=== PATIENT | male | born 1990 | race Caucasian/White ===

== ENCOUNTER 2016-06-01 19:49 | Emergency (ER) | payer OTHER ==
[~2016-06-01] VITALS: Ht 177.8 cm; Wt 77.1 kg
[~2016-06-01 19:49] MED LIST: AMOXICILLIN875 MG PO; BIAXIN500 MG PO; CLARITIN10 MG PO; HYDROCODONE BIT1 T11 PO; IBU-6600 MG PO; IBU800 MG PO; KEFLEX500 MG PO; MEDROL DOSEPAK4 MG PO; MOTRIN800 MG PO; NAPROSYN500 MG PO; NKHM; PENICILLIN VK500 MG PO; Peridex 473 ML473 ML PO; SOMA250 MG PO; VENTOLIN H0.09 MG/AC INH; VOLTAREN50 M1 PO; ZITHROMAX Z PA250 MG PO; ZITHROMAX250 MG PO
[2016-06-01 19:52] VITALS: BP 140/80
[2016-06-01] MEDS ORDERED: NAPROSYN500 MG PO (19:58)
[2016-06-01] MEDS ORDERED: 'PARAFON FORTE500 M1 PO (19:58)
== END 2016-06-01 20:50 | disposition home or self-care (01) ==
LOC: ED 19:49
DX: M54.5 Low back pain (principal); M54.10 Radiculopathy, site unspecified; R03.0 Elevated blood-pressure reading, without diagnosis of hypertension; F17.200 Nicotine dependence, unspecified, uncomplicated

== ENCOUNTER 2017-01-05 17:47 | Emergency (ER) | payer OTHER ==
[~2017-01-05] VITALS: Wt 84.8 kg
[~2017-01-05 17:47] MED LIST changes: +'PARAFON FORTE500 M1 PO
[2017-01-05 17:52] VITALS: BP 135/80
[2017-01-05 18:23] LABS: BASO % 0.3 % (0.0-1.0); EOS % 0.3 % (1.0-4.0); HEMATOCRIT 46.8 % (42.0-52.0); HEMOGLOBIN 15.9 g/dl (14.0-18.0); LYMPH # 2.9 10*3/uL (1.3-4.4); LYMPH % 36.5 % (27.0-41.0); MEAN CELL VOLUME 88.5 fl (80.0-94.0); MEAN CORPUSCULAR HGB 30.1 pg (27.0-31.0); MEAN PLATELET VOLUME 11.3 fl (9.6-12.3); MONO # 0.5 10*3/uL (0.1-1.0); MONO % 6.9 % (3.0-9.0); NEUT # 4.4 10*3/uL (2.3-7.9); NEUT % 55.9 % (47.0-73.0); PLATELET COUNT AUTOMATED 166 10*3/uL (130-400); RED BLOOD COUNT 5.29 10*6/uL (4.50-5.90); RED CELL DISTRI WIDTH 12.6 % (0-14.5); WHITE BLOOD COUNT 7.8 10*3/uL (4.8-10.8)
[2017-01-05 18:38] LABS: ALBUMIN 4.1 gm/dl (3.1-4.5); ALKALINE PHOSPHATASE 86 U/L (45-117); BUN 9 mg/dl (7-24); CHLORIDE 104 mmol/L (98-107); CREATININE 1.04 mg/dL (0.70-1.30); LIPASE 111 U/L (73-393); POTASSIUM 3.9 mmol/L (3.5-5.1); SGOT/AST 16 IU/L (3-35); SGPT/ALT 20 U/L (12-78); SODIUM 139 mmol/L (136-145); TOTAL PROTEIN 7.4 gm/dL (6.4-8.2)
[2017-01-05 18:44] LABS: BILIRUBIN NEGATIVE (NEGATIVE); BLOOD NEGATIVE (NEGATIVE); CLARITY CLEAR (CLEAR); COLOR YELLOW (YELLOW); GLUCOSE NEGATIVE (NEGATIVE); KETONE NEGATIVE (NEGATIVE); LEUKO ESTERASE NEGATIVE (NEGATIVE); NITRITE NEGATIVE (NEGATIVE); UROBILINOGEN 0.2 E.U./dl (0.2-1.0)
[2017-01-05 18:54] LABS: BACTERIA TRACE; EPITHELIAL CELLS 0-2; WBC 0-2 wbc/hpf (0-5)
[2017-01-05] MEDS ORDERED: ZANTAC 150150 MG PO (19:50)
== END 2017-01-05 19:55 | disposition home or self-care (01) ==
LOC: ED 17:47
PROVIDERS: Physician Assistant
DX: R10.13 Epigastric pain (principal); F17.200 Nicotine dependence, unspecified, uncomplicated

== ENCOUNTER 2017-02-01 11:47 | Emergency (ER) | payer OTHER ==
[~2017-02-01 11:47] MED LIST changes: +ZANTAC 150150 MG PO
[2017-02-01 11:52] VITALS: BP 138/78
[2017-02-01] MEDS ORDERED: NAPROSYN500 MG PO (12:03)
[2017-02-01] MEDS ORDERED: PENICILLIN VK500 MG PO (12:03)
[2017-02-01] MEDS ORDERED: Peridex 473 ML473 ML PO (12:03)
== END 2017-02-01 12:40 | disposition home or self-care (01) ==
LOC: ED 11:47
DX: K08.89 Other specified disorders of teeth and supporting structures (principal); K02.9 Dental caries, unspecified; R03.0 Elevated blood-pressure reading, without diagnosis of hypertension; J45.901 Unspecified asthma with (acute) exacerbation; F17.200 Nicotine dependence, unspecified, uncomplicated; Z79.899 Other long term (current) drug therapy

== ENCOUNTER 2017-05-29 18:41 | Emergency (ER) | payer OTHER ==
[~2017-05-29] VITALS: Wt 85.7 kg
[2017-05-29 19:03] LABS: BASO % 0.2 % (0.0-1.0); EOS % 0.1 % (1.0-4.0); HEMATOCRIT 46.8 % (42.0-52.0); HEMOGLOBIN 15.9 g/dl (14.0-18.0); LYMPH # 1.5 10*3/uL (1.3-4.4); LYMPH % 17.6 % (27.0-41.0); MEAN CORPUSCULAR HGB 29.9 pg (27.0-31.0); MEAN PLATELET VOLUME 11.2 fl (9.6-12.3); MONO # 0.7 10*3/uL (0.1-1.0); MONO % 7.8 % (3.0-9.0); NEUT # 6.3 10*3/uL (2.3-7.9); NEUT % 74.1 % (47.0-73.0); PLATELET COUNT AUTOMATED 139 10*3/uL (130-400); RED BLOOD COUNT 5.32 10*6/uL (4.50-5.90); RED CELL DISTRI WIDTH 12.5 % (0-14.5); WHITE BLOOD COUNT 8.6 10*3/uL (4.8-10.8)
[2017-05-29 19:17] LABS: ALBUMIN 4.1 gm/dl (3.1-4.5); ALKALINE PHOSPHATASE 85 U/L (45-117); BUN 10 mg/dl (7-24); CHLORIDE 102 mmol/L (98-107); CREATININE 1.05 mg/dL (0.70-1.30); POTASSIUM 3.7 mmol/L (3.5-5.1); SGOT/AST 16 IU/L (3-35); SGPT/ALT 21 U/L (12-78); SODIUM 138 mmol/L (136-145); TOTAL PROTEIN 7.4 gm/dL (6.4-8.2)
[2017-05-29 19:45] VITALS: BP 128/66
[2017-05-29] MEDS ORDERED: PREDNISONE20 M1 PO (19:47)
[2017-05-29] MEDS ORDERED: LOTRIMIN AF12 GM T (19:47)
[2017-05-29] MEDS ORDERED: PROAIR HFA8.5 GM INH (19:47)
== END 2017-05-29 19:46 | disposition home or self-care (01) ==
LOC: ED 18:41
PROVIDERS: Nurse Practitioner Family
DX: J45.909 Unspecified asthma, uncomplicated (principal); B35.3 Tinea pedis; F17.200 Nicotine dependence, unspecified, uncomplicated

== ENCOUNTER 2017-05-31 17:50 | Emergency (ER) | payer OTHER ==
[~2017-05-31] VITALS: Ht 177.8 cm; Wt 85.7 kg
[~2017-05-31 17:50] MED LIST changes: +LOTRIMIN AF12 GM T; +PREDNISONE20 M1 PO; +PROAIR HFA8.5 GM INH
[2017-05-31 18:26] LABS: BILIRUBIN NEGATIVE (NEGATIVE); BLOOD NEGATIVE (NEGATIVE); CLARITY CLEAR (CLEAR); COLOR YELLOW (YELLOW); GLUCOSE NEGATIVE (NEGATIVE); KETONE NEGATIVE (NEGATIVE); LEUKO ESTERASE NEGATIVE (NEGATIVE); NITRITE NEGATIVE (NEGATIVE); SPECIFIC GRAVITY <= 1.005 (1.005-1.030); UROBILINOGEN 0.2 E.U./dl (0.2-1.0)
[2017-05-31 18:32] LABS: BACTERIA 1+; EPITHELIAL CELLS 0-2; WBC 0-2 wbc/hpf (0-5)
[2017-05-31 18:34] LABS: URINE AMPHETAMINES < 1000 (1000ng/ml); URINE BARBITURATES < 200 (200ng/ml); URINE BENZODIAZEPINES < 200 (200ng/ml); URINE CANNABINOIDS (THC) < 50 (50ng/ml); URINE COCAINE < 300 (300ng/ml); URINE METHADONE < 300 (300ng/ml); URINE OPIATES < 300 (300ng/ml)
[2017-05-31 18:35] LABS: URINE PHENCYCLIDINE < 25 (25ng/ml)
[2017-05-31 18:52] VITALS: BP 120/80
[2017-05-31] MEDS ORDERED: ZITHROMAX250 MG PO (19:18)
== END 2017-05-31 19:25 | disposition home or self-care (01) ==
LOC: ED 17:50
PROVIDERS: Nurse Practitioner Family
DX: J06.9 Acute upper respiratory infection, unspecified (principal); J45.909 Unspecified asthma, uncomplicated; F17.210 Nicotine dependence, cigarettes, uncomplicated; Z79.899 Other long term (current) drug therapy

== ENCOUNTER 2017-06-04 03:14 | Emergency (ER) | payer OTHER ==
[~2017-06-04] VITALS: Ht 182.8 cm; Wt 77.1 kg
[2017-06-04 03:37] LABS: BASO % 0.2 % (0.0-1.0); EOS % 0.2 % (1.0-4.0); HEMATOCRIT 44.4 % (42.0-52.0); HEMOGLOBIN 15.5 g/dl (14.0-18.0); LYMPH # 2.3 10*3/uL (1.3-4.4); LYMPH % 51.4 % (27.0-41.0); MEAN CELL VOLUME 85.7 fl (80.0-94.0); MEAN CORPUSCULAR HGB 29.9 pg (27.0-31.0); MEAN CORPUSCULAR HGB CONC 34.9 g/dl (33.0-37.0); MEAN PLATELET VOLUME 11.7 fl (9.6-12.3); MONO # 0.7 10*3/uL (0.1-1.0); MONO % 15.2 % (3.0-9.0); NEUT # 1.5 10*3/uL (2.3-7.9); PLATELET COUNT AUTOMATED 108 10*3/uL (130-400); RED BLOOD COUNT 5.18 10*6/uL (4.50-5.90); RED CELL DISTRI WIDTH 12.4 % (0-14.5); WHITE BLOOD COUNT 4.4 10*3/uL (4.8-10.8)
[2017-06-04 03:47] LABS: ACT PARTIAL THROMBO TIME 29.8 SECONDS (20.8-31.5); INTERNATIONAL NORM RATIO 1.1 (2.0-3.5)
[2017-06-04 03:53] LABS: ALBUMIN 3.6 gm/dl (3.1-4.5); ALKALINE PHOSPHATASE 73 U/L (45-117); BUN 12 mg/dl (7-24); CHLORIDE 105 mmol/L (98-107); POTASSIUM 3.1 mmol/L (3.5-5.1); SGOT/AST 20 IU/L (3-35); SGPT/ALT 26 U/L (12-78); SODIUM 139 mmol/L (136-145); TOTAL PROTEIN 6.9 gm/dL (6.4-8.2)
[2017-06-04 03:54] LABS: TROPONIN I < 0.015 ng/ml (<0.045)
[2017-06-04 04:06] VITALS: BP 122/75
== END 2017-06-04 04:45 | disposition home or self-care (01) ==
LOC: ED 03:14
PROVIDERS: Student in an Organized Health Care Education/Training Program
DX: R07.89 Other chest pain (principal); J06.9 Acute upper respiratory infection, unspecified; J45.909 Unspecified asthma, uncomplicated; Z79.899 Other long term (current) drug therapy

== ENCOUNTER 2018-01-08 18:09 | Emergency (ER) | payer OTHER ==
[~2018-01-08] VITALS: Ht 180.3 cm; Wt 81.6 kg
[2018-01-08 18:09] VITALS: BP 123/76
[2018-01-08] MEDS ORDERED: PROAIR HFA8.5 GM INH (19:41)
[2018-01-08] MEDS ORDERED: PREDNISONE10 MG PO (19:41)
== END 2018-01-08 19:50 | disposition home or self-care (01) ==
LOC: ED 18:09
DX: J06.9 Acute upper respiratory infection, unspecified (principal); F17.200 Nicotine dependence, unspecified, uncomplicated

== ENCOUNTER 2018-02-13 00:59 | Emergency (ER) | payer OTHER ==
[~2018-02-13] VITALS: Ht 180.3 cm; Wt 81.6 kg
[~2018-02-13 00:59] MED LIST changes: +PREDNISONE10 MG PO
[2018-02-13 01:02] VITALS: BP 116/80
[2018-02-13] MEDS ORDERED: Motrin,Rufen800 MG PO (01:58)
[2018-02-13] MEDS ORDERED: CLINDAMYCIN HC300 MG PO (01:58)
== END 2018-02-13 03:04 | disposition home or self-care (01) ==
LOC: ED 00:59
DX: K11.20 Sialoadenitis, unspecified (principal); J45.909 Unspecified asthma, uncomplicated; Z79.899 Other long term (current) drug therapy

== ENCOUNTER 2018-07-24 13:15 | Emergency (ER) | payer OTHER ==
[~2018-07-24] VITALS: Ht 180.3 cm; Wt 81.6 kg
[~2018-07-24 13:15] MED LIST changes: +AMOXICILLIN500 M2 PO; +CLINDAMYCIN HC300 MG PO; +Motrin,Rufen800 MG PO
[2018-07-24 13:17] VITALS: BP 129/79
[2018-07-24] MEDS ORDERED: DOXYCYCLINE100 M3 PO (15:26)
[2018-07-24] MEDS ORDERED: PREDNISONE20 M1 PO (15:26)
[2018-07-24] MEDS ORDERED: TESSALON PERLE100 M1 PO (15:26)
[2018-07-24] MEDS ORDERED: PROVENTIL HFA6.7 GM INH (15:26)
== END 2018-07-24 15:45 | disposition home or self-care (01) ==
LOC: ED 13:15
DX: J40 Bronchitis, not specified as acute or chronic (principal); F17.200 Nicotine dependence, unspecified, uncomplicated

== ENCOUNTER 2018-09-05 01:48 | Emergency (ER) | payer OTHER ==
[~2018-09-05] VITALS: Wt 81.6 kg
[~2018-09-05 01:48] MED LIST changes: +DOXYCYCLINE100 M3 PO; +PROVENTIL HFA6.7 GM INH; +TESSALON PERLE100 M1 PO
[2018-09-05 01:49] VITALS: BP 135/88
[2018-09-05] MEDS ORDERED: IBU800 MG PO (01:52)
[2018-09-05] MEDS ORDERED: CLINDAMYCIN HC300 MG PO (01:52)
== END 2018-09-05 02:35 | disposition home or self-care (01) ==
LOC: ED 01:48
DX: K02.9 Dental caries, unspecified (principal); J45.909 Unspecified asthma, uncomplicated; Z79.899 Other long term (current) drug therapy; Z79.2 Long term (current) use of antibiotics

== ENCOUNTER 2019-11-14 21:53 | Emergency (ER) | payer OTHER ==
[~2019-11-14] VITALS: Wt 85.7 kg
[2019-11-14 22:12] VITALS: BP 123/78
[2019-11-14 22:51] LABS: BASO % 0.4 % (0.0-1.0); EOS % 0.4 % (1.0-4.0); HEMATOCRIT 45.7 % (42.0-52.0); LYMPH # 3.1 10*3/uL (1.3-4.4); LYMPH % 36.7 % (27.0-41.0); MEAN CELL VOLUME 86.6 fl (80.0-94.0); MEAN CORPUSCULAR HGB 29.7 pg (27.0-31.0); MEAN CORPUSCULAR HGB CONC 34.4 g/dl (33.0-37.0); MEAN PLATELET VOLUME 11.1 fl (9.6-12.3); MONO # 0.6 10*3/uL (0.1-1.0); MONO % 7.6 % (3.0-9.0); NEUT # 4.6 10*3/uL (2.3-7.9); NEUT % 54.7 % (47.0-73.0); PLATELET COUNT AUTOMATED 183 10*3/uL (130-400); RED BLOOD COUNT 5.28 10*6/uL (4.50-5.90); RED CELL DISTRI WIDTH 12.7 % (0-14.5); WHITE BLOOD COUNT 8.4 10*3/uL (4.8-10.8)
[2019-11-14 23:04] LABS: ALKALINE PHOSPHATASE 85 U/L (45-117); BUN 14 mg/dl (7-24); CHLORIDE 106 mmol/L (98-107); CREATININE 1.05 mg/dL (0.70-1.30); POTASSIUM 3.8 mmol/L (3.5-5.1); SGOT/AST 18 IU/L (3-35); SGPT/ALT 26 U/L (12-78); SODIUM 139 mmol/L (136-145); TOTAL PROTEIN 7.4 gm/dL (6.4-8.2)
== END 2019-11-15 00:26 | disposition home or self-care (01) ==
LOC: ED 21:53
PROVIDERS: Nurse Practitioner Family
DX: D17.9 Benign lipomatous neoplasm, unspecified (principal); J45.909 Unspecified asthma, uncomplicated

== ENCOUNTER 2020-12-08 01:51 | Emergency (ER) | payer OTHER ==
[~2020-12-08] VITALS: Ht 177.8 cm; Wt 90.7 kg
[2020-12-08] MEDS ORDERED: NAPROSYN500 MG PO (04:10)
[2020-12-08] MEDS ORDERED: METHOCARBAMOL750 M1 PO (04:10)
== END 2020-12-08 04:36 | disposition home or self-care (01) ==
LOC: ED 01:51
DX: M48.061 Spinal stenosis, lumbar region without neurogenic claudication (principal)

== ENCOUNTER → 2021-01-11 | Outpatient (CLI) | payer OTHER ==
[~2021-01-11] MED LIST changes: +METHOCARBAMOL750 M1 PO
== END | disposition home or self-care (01) ==
LOC: RAD 10:24
PROVIDERS: ATTEND Chiropractor Orthopedic
DX: S39.012A Strain of muscle, fascia and tendon of lower back, initial encounter (principal); X58.XXXA Exposure to other specified factors, initial encounter; Y93.89 Activity, other specified; Y92.89 Other specified places as the place of occurrence of the external cause; Y99.8 Other external cause status

== ENCOUNTER → 2022-04-16 | Outpatient (CLI) | payer OTHER | END | disposition home or self-care (01) | LOC: RAD 11:39 | PROVIDERS: ATTEND Chiropractor Orthopedic | DX: M41.26 Other idiopathic scoliosis, lumbar region (principal) ==

== ENCOUNTER → 2022-04-29 | Outpatient (CLI) | payer OTHER | END | disposition home or self-care (01) | LOC: MRI 13:00 | PROVIDERS: ATTEND Chiropractor Orthopedic | DX: M47.26 Other spondylosis with radiculopathy, lumbar region (principal) ==

== ENCOUNTER 2022-06-04 09:47 | Emergency (ER) | payer OTHER ==
[~2022-06-04] VITALS: Ht 180.3 cm; Wt 91.2 kg
[2022-06-04 09:52] VITALS: BP 134/80
[2022-06-04] MEDS ORDERED: VIBRA-TAB100 MG PO (10:10)
== END 2022-06-04 10:14 | disposition home or self-care (01) ==
LOC: ED 09:47
DX: J32.9 Chronic sinusitis, unspecified (principal); J45.909 Unspecified asthma, uncomplicated; F17.200 Nicotine dependence, unspecified, uncomplicated

== ENCOUNTER 2022-11-21 23:38 | Emergency (ER) | payer OTHER ==
[~2022-11-21 23:38] MED LIST changes: +VIBRA-TAB100 MG PO
[2022-11-21 23:49] VITALS: BP 129/80
[2022-11-22] MEDS ORDERED: PENICILLIN VK500 MG PO (00:18)
== END 2022-11-22 00:36 | disposition home or self-care (01) ==
LOC: ED 23:38
DX: K08.89 Other specified disorders of teeth and supporting structures (principal); K02.9 Dental caries, unspecified; J45.909 Unspecified asthma, uncomplicated; F90.9 Attention-deficit hyperactivity disorder, unspecified type

== ENCOUNTER 2023-05-18 22:28 | Emergency (ER) | payer OTHER ==
[~2023-05-18] VITALS: Ht 180.3 cm; Wt 90.7 kg
[2023-05-18 22:56] VITALS: BP 134/85
== END 2023-05-19 01:37 | disposition home or self-care (01) ==
LOC: ED 22:28
DX: M25.512 Pain in left shoulder (principal); J45.909 Unspecified asthma, uncomplicated; Z79.2 Long term (current) use of antibiotics; X50.0XXA Overexertion from strenuous movement or load, initial encounter; Y93.89 Activity, other specified; Y92.89 Other specified places as the place of occurrence of the external cause; Y99.8 Other external cause status

== ENCOUNTER 2023-06-28 23:32 | Emergency (ER) | payer OTHER ==
[~2023-06-28] VITALS: Ht 172.7 cm; Wt 102.1 kg
[2023-06-28 23:44] VITALS: BP 129/84
[2023-06-29] MEDS ORDERED: AMOXICILLIN500 M2 PO (00:37)
[2023-06-29] MEDS ORDERED: AMOXICILLIN 500 MG CAP PO ONE (00:40)
== END 2023-06-29 01:18 | disposition home or self-care (01) ==
LOC: ED 23:32
DX: J02.9 Acute pharyngitis, unspecified (principal); H66.93 Otitis media, unspecified, bilateral; J45.909 Unspecified asthma, uncomplicated; F90.9 Attention-deficit hyperactivity disorder, unspecified type; Z87.891 Personal history of nicotine dependence

== ENCOUNTER 2023-11-03 10:39 | Emergency (ER) | payer OTHER ==
[~2023-11-03] VITALS: Ht 180.3 cm; Wt 91.2 kg
[2023-11-03 11:02] VITALS: BP 128/84
== END 2023-11-03 12:54 | disposition home or self-care (01) ==
LOC: ED 10:39
DX: J06.9 Acute upper respiratory infection, unspecified (principal); Z20.822 Contact with and (suspected) exposure to COVID-19; J45.909 Unspecified asthma, uncomplicated; F90.9 Attention-deficit hyperactivity disorder, unspecified type; Z87.891 Personal history of nicotine dependence

== ENCOUNTER 2023-11-09 11:41 | Emergency (ER) | payer OTHER ==
[~2023-11-09] VITALS: Wt 91.2 kg
[2023-11-09 12:11] VITALS: BP 114/74
[2023-11-09 12:37] LABS: BILIRUBIN Negative (Negative); BLOOD Trace-Intact (Negative); CLARITY Clear (Clear); COLOR Yellow (Yellow); GLUCOSE Negative (Negative); KETONE Trace (Negative); LEUKO ESTERASE Trace (Negative); NITRITE Negative (Negative); PH 6.5 (4.5-8.0); SPECIFIC GRAVITY 1.025 (1.001-1.030)
[2023-11-09 12:53] LABS: BACTERIA TRACE; EPITHELIAL CELLS 0-2; MUCOUS 2+
[2023-11-09 13:25] LABS: BASO % 0.3 % (0.0-1.0); HEMATOCRIT 43.3 % (42.0-52.0); LYMPH # 1.3 10*3/uL (1.3-4.4); LYMPH % 16.4 % (27.0-41.0); MEAN CELL VOLUME 87.3 fl (80.0-94.0); MEAN CORPUSCULAR HGB 29.6 pg (27.0-31.0); MEAN CORPUSCULAR HGB CONC 33.9 g/dl (33.0-37.0); MEAN PLATELET VOLUME 10.3 fl (9.6-12.3); MONO # 0.7 10*3/uL (0.1-1.0); MONO % 8.8 % (3.0-9.0); NEUT # 5.9 10*3/uL (2.3-7.9); NEUT % 74.1 % (47.0-73.0); PLATELET COUNT AUTOMATED 175 10*3/uL (130-400); RED BLOOD COUNT 4.96 10*6/uL (4.50-5.90); RED CELL DISTRI WIDTH 12.6 % (0-14.5); WHITE BLOOD COUNT 7.9 10*3/uL (4.8-10.8)
[2023-11-09 13:47] LABS: BUN 9 mg/dl (9-23); CHLORIDE 101 mmol/L (98-107); POTASSIUM 4.3 mmol/L (3.4-5.1)
[2023-11-09] MEDS ORDERED: LEVOFLOXACIN 500 MG TAB PO ONE (15:05)
[2023-11-09] MEDS ORDERED: LEVOFLOXACIN500 MG PO (15:25)
== END 2023-11-09 15:28 | disposition home or self-care (01) ==
LOC: ED 11:41
PROVIDERS: Nurse Practitioner Family
DX: J18.8 Other pneumonia, unspecified organism (principal); R10.9 Unspecified abdominal pain; J45.909 Unspecified asthma, uncomplicated; F90.9 Attention-deficit hyperactivity disorder, unspecified type; Z87.891 Personal history of nicotine dependence

== ENCOUNTER 2024-09-08 00:39 | Emergency (ER) | payer OTHER ==
[~2024-09-08] VITALS: Ht 180.3 cm; Wt 91.2 kg
[~2024-09-08 00:39] MED LIST changes: +LEVOFLOXACIN500 MG PO
[2024-09-08 00:52] VITALS: BP 129/74
[2024-09-08] MEDS ORDERED: FAMOTIDINE 50 ML IV ONE (00:55)
[2024-09-08] MEDS ORDERED: diphenhydrAMINE hydrochloride 50 MG/ML VIAL IV ONE (00:55)
[2024-09-08] MEDS ORDERED: Water, Sterile 10 ML VIAL ONE (01:19)
== END 2024-09-08 02:18 | disposition home or self-care (01) ==
LOC: ED 00:39
DX: T63.441A Toxic effect of venom of bees, accidental (unintentional), initial encounter (principal); Z79.899 Other long term (current) drug therapy; J45.909 Unspecified asthma, uncomplicated; Y92.89 Other specified places as the place of occurrence of the external cause